=== PATIENT | male | born 1990 | race Caucasian/White ===

== ENCOUNTER 2025-02-20 05:45 | Day surgery (SDC) | payer BC, MEDICAID, SELFPAY ==
[2025-02-14 10:16] VITALS: BMI 38.0
[2025-02-14 10:53] LABS: Basophils % (Auto) 1 % (0-2.5); Eosinophils # (Auto) 0.2 Thou/mm3 (0.0-0.5); Eosinophils % (Auto) 3 % (0-10); Hematocrit 40.4 % (41.0-53.0); Hemoglobin 13.7 g/dL (13.5-16.0); Immature Granulocytes % (Auto) 1 % (0-0); Immature Granulocytes Auto 0.04 Thou/mm3 (0.00-0.00); Lymphocytes # (Auto) 2.5 Thou/mm3 (1.0-4.8); Lymphocytes % (Auto) 40 % (10-50); Mean Corpuscular HGB Conc 33.9 g/dl (31.0-37.0); Mean Corpuscular Hemoglobin 28.3 pg (25.0-35.0); Mean Corpuscular Volume 84 fL (80-100); Monocytes # (Auto) 0.5 Thou/mm3 (0.0-0.8); Monocytes % (Auto) 9 % (0-12); Neutrophils # (Auto) 2.9 Thou/mm3 (1.8-7.7); Neutrophils % (Auto) 47 % (37-80); Nucleated Red Blood Cell % 0 /100 WBC (0); Platelet Count 345 Thou/mm3 (140-440); RDW Standard Deviation 38.5 fL (35.1-43.9); Red Blood Count 4.84 Miln/mm3 (4.50-5.90); White Blood Count 6.1 Thou/mm3 (3.8-10.6)
[2025-02-14 11:06] LABS: Alanine Aminotransferase 26 U/L (10-49); Albumin, Serum 4.9 gm/dL (3.5-5.0); Albumin/Globulin Ratio 1.7 (1.2-2.2); Alkaline Phosphatase 64 U/L (46-116); Anion Gap 8 (7-16); Aspartate Amino Transferase 27 U/L (0-34); BUN/Creatinine Ratio 18 Ratio (12-20); Bilirubin,Total 0.3 mg/dL (0.3-1.2); Blood Urea Nitrogen 18 mg/dL (9-23); Calcium 9.4 mg/dL (8.3-10.6); Calcium (Corrected) 9.4 mg/dL (8.5-10.1); Carbon Dioxide 28.2 mMol/L (20.0-31.0); Chloride 104 mMol/L (98-107); Estimated Creatinine Clearance 147.6 mL/min (>60); Globulin 2.9 gm/dL (2.3-3.5); Glucose 102 mg/dL (74-106); Osmolality,Calculated 281 (275-295); Potassium 4.7 mMol/L (3.4-5.1); Sodium 140 mMol/L (136-145); Total Protein 7.8 gm/dL (5.7-8.2); eGFR > 60 See Note
--- NOTE | 2025-02-19 14:38 | SUR.PREOP ---
Pt notified to come in at 0545 tomorrow for surgery.
[2025-02-20 06:53] VITALS: BP 134/78; PULSE 61; RESP 12; TEMP 36.3; O2SAT 97
--- NOTE | 2025-02-20 08:31 | PD.SUROPNT ---
Date of Procedure 02/20/25 Pre Op Diagnosis Symptomatic cholelithiasis Post Op Diagnosis Cholelithiasis with cholecystitis Procedure Laparoscopic cholecystectomy Findings Moderately distended gallbladder with gallstones and chronic cholecystitis Procedure Description Patient was brought into the operating room in supine position. After administration of general endotracheal anesthesia abdomen was prepped and draped in standard surgical manner. A Veress needle was inserted through the umbilicus and pneumoperitoneum was obtained up to 15 mmHg. The Veress needle was then removed, a 5 mm infraumbilical incision was made and the 5mm trocar was inserted. Laparoscopic camera was placed. Under direct visualization a laparoscopic camera a 10 mm trocar was placed in subxiphoid and two 5 mm trocars placed in right upper quadrant. The gallbladder was identified and was noted to be moderately distended with gallstones and chronic cholecystitis. It was retracted cephalad and laterally. Dissection started near the infundibulum of gallbladder where cystic duct and gallbladder junction clearly identified. The cystic duct was circumferentially dissected off the peritoneum and surrounding inflammatory tissue. The critical view of safety was clearly demonstrated. Cystic duct was then divided between 2 endoclips proximally and one distally. The cystic artery was similarly dissected and divided. The gallbladder was then from the liver bed using electrocautery. The gallbladder was then placed inside an Endo Catch and removed from the abdomen utilizing subxiphoid trocar site. The area was copiously and thoroughly washed and irrigated, all the fluid was suctioned and the suction fluid returned clear. Hemostasis achieved using electrocautery. Endoclips noted be in place and intact without any bleeding or any leakage. Hemostasis was adequate and satisfactory. The subxiphoid trocar sites fascial defect was closed with 0 Vicryl using Endo Closure device. Instruments and trocars removed, pneumoperitoneum was evacuated and the incisions closed with 4-0 Monocryl in subcuticular fashion. Instrument needle and sponge counts were all reported to be correct X2. Patient tolerated the procedure well, was extubated, breathing spontaneously and without difficulty and was transferred to postanesthesia care in stable condition. Anesthesia GETA and local Pathology / specimen Other (Gallbladder and contents) Estimated Blood Loss 10 Condition Stable Disposition PACU Surgeon Francy Matute MD Surgical Staff Operation Date: 02/20/25 07:45 Case Staff [employer]: Karl Catherine RN First Assistant: Sabrina Dwyer
[2025-02-20 08:40] VITALS: BP 130/78; PULSE 76; RESP 12; TEMP 36.6; O2SAT 99
--- NOTE | 2025-02-20 08:40 | SUR.PHASEI ---
Pt. arrived to recovery eyes closed, slurred, slow talking with RN, VSS, no c/o pain or nausea at this time, lung sounds clear, equal expansion conor., pt. receiving 10 liters 02 via oxymask, lap sites x4 to abdomen, dermabond intact, no active bleeding or redness noted. Report received from Karl PATEL and Edelmira VILLAFANA.
[2025-02-20 08:45] VITALS: BP 123/75; PULSE 68; RESP 12; O2SAT 99
[2025-02-20 08:50] VITALS: BP 127/63; PULSE 74; RESP 12; O2SAT 98
[2025-02-20 09:00] VITALS: BP 120/73; PULSE 78; RESP 15; TEMP 36.3; O2SAT 96
[2025-02-20 09:10] VITALS: BP 124/79; PULSE 66; RESP 12; TEMP 36.3; O2SAT 96
--- NOTE | 2025-02-20 09:15 | SUR.PHASEII ---
Pt. meets criteria for discharge, AAOx3, no c/o pain or nausea at this time, VSS, IV discontinued without complications, lap sites x4 CDI. Gave discharge instructions to pt. and pt.'s , verbalized understanding, made aware medications to be picked up at preferred pharmacy. Pt. escorted to vehicle via w/c with all of belongings by staff.
== END 2025-02-20 09:15 | disposition home or self-care (01) ==
PROVIDERS: Referring Provider Surgery; Visit Provider Surgery
PROC: 0FT44ZZ Resection of Gallbladder, Percutaneous Endoscopic Approach (ICD-10-PCS; CPT 47562; principal; 2025-02-20 07:30)
DX: K80.10 Calculus of gallbladder with chronic cholecystitis without obstruction (principal)
CPT/HCPCS: 47562; 36415; 80053; 85025; A4217; A4649; J0131; J0694; J1171; J1885; J2250; J2704; J3010; J3490; J1596